=== PATIENT | male | born 2000 | race Two or more races ===

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

== ENCOUNTER 2019-02-12 22:45 | Emergency (ER) | payer OTHER ==
[2019-02-12 22:51] VITALS: TEMP 98; BMI 27.4
--- NOTE | 2019-02-12 23:17 | PDOC ---
Attending Attestation - Resident Resident Name: Yousuf Penn - ED Attending Attestation I have performed the following: I have examined & evaluated the patient, The case was reviewed & discussed with the resident, I agree w/resident's findings & plan - HPI HPI: 02/13/19 00:58 Pt comes with CP that began with breathing a few hrs prior to arrival. Pt did no heavy lifting; he doesn't work or go to school at the moment. He uses no drugs/alcohol. He is a smoker Afebrile Hx of asthma as a child. No cough; no productive sputum. - Physicial Exam PE: 02/13/19 00:59 Agree with resident exam Pt has normal non wheezing lung exam; no rhonchi/rales - Medical Decision Making 02/13/19 01:00 Labs normal; EKG and CXR normal; vital signs normal; exam normal Home with NSAIDS. 02/13/19 01:01 Pt appears great.
[2019-02-12] MEDS ORDERED: LACTATED RINGERS SOLUTION 1000 ML INFUS.BAG IV ONE (23:59)
[2019-02-13 00:15] LABS: BASO % 0.2 % (0-2.0); EOS % 0.4 % (0-4.5); HEMATOCRIT 47.4 % (35.4-49); LYMPH % 24.8 % (8-40); MCH 30.8 pg (25.7-33.7); MCHC 33.8 g/dl (32.0-35.9); MEAN CELL VOLUME 91.2 fl (80-96); MEAN PLT VOLUME 9.5 fl (7.5-11.1); NEUT % 68.6 % (42.8-82.8); PLATELET COUNT 224 K/MM3 (134-434); RBC 5.19 M/mm3 (4.00-5.60); RDW 13.3 % (11.9-15.9)
--- NOTE | 2019-02-13 00:18 | PDOC ---
History of Present Illness - General Chief Complaint: Chest Pain Stated Complaint: CHEST PAIN Time Seen by Provider: 02/12/19 23:11 History Source: Patient, Parent(s) (Mother present at bedside.), Significant Other (Girlfriend present at bedside.) Exam Limitations: No Limitations - History of Present Illness Initial Comments: HPI: 18 y/o male presenting to [facility] ER complaining of substernal chest pain with radiation to left arm for the past four hours. Sensation is made worse with palpation and movement of left arm. Reports the pain started while he was sitting on the couch talking to his girlfriend. He then passed out for approx. 5-10 minutes. Subsequently threw up after returning to baseline. Denies tongue trauma, or loss of bowel or bladder continents. Girlfriend denies observing seizure like activity. Pt took ASA prior to presentation. Denies h/o of similar sensation. Denies change in symptoms with position change or exertion. Denies recent illness. Denies trauma. Family Hx: - Cousin of a heart attack at age 19 - Mother had a stroke in her early 50s Social Hx: - Lifts weights, but has not been to the gym in a week. Denies lifting anything heavy. - Denies using OTC vitamins or supplements. Medical Hx: - Asthma, has not used inhaler in several years Review of Systems: In addition to that documented in the HPI above, the additional ROS was obtained : Constitutional- Denies fevers or chills Head- Denies vision changes ENMT- Endorses one month of a sore throat CV- Per HPI Resp- Endorses SOB - described as trouble bringing air into his body GI- Endorses vomiting. Denies diarrhea - Denies painful urination MSK- Denies recent trauma Skin- Denies new rashes Neuro- Denies new numbness or tingling or weakness Endocrine- Denies polyuria Heme- Denies bleeding or bruising Physical Examination: Constitutional- Well-developed, well-nourished adult male in no acute distress or obvious discomfort. Found semi-fowlers on hospital bed. Answered all questions appropriately and completely. Head- Normocephalic. No obvious external signs of trauma. Neck- Supple, trachea is midline. Cardiovascular / Chest- Regular rate and regular rhythm. No murmur, rubs, clicks , or gallops. Peripheral pulses- radial pulses full. No pretibial edema. No change in pain with transitioning from laying to sitting position. Diffuse pain to sternal area of chest, made worse with direct palpation and lift off test of left arm. Respiratory- Breathing unlabored but mildly tachypneic. Occasional dry sounding cough. Speaking in complete sentences without pausing. Equal chest rise and fall. Clear to auscultation bilaterally. No stridor, no wheezing, no rhonchi. Gastrointestinal- abdomen is soft, non-tender, non-distended. Neuro- Alert and oriented x4. Moving all four extremities spontaneously. Skin- Warm, dry, and intact. - No R or L CVA tenderness. Psych- Affect- concerned. Mood- normal. Speech was non-labored, non-pressured. MDM: *Reviewed vital signs, nursing notes, and prior visit documentation (if available). 18 y/o male presenting with reproducible chest pain and left arm pain. Vague possible syncopal episode. No reported seizure like activity. Afebrile. Vitals unremarkable for hypotension or tachycardia. Physical exam as described above. EKG unremarkable for ischemic changes. Troponin not elevated. Will not repeat as the symptoms started >3 hours prior to measurement. D-Dimer not elevated. CXR unremarkable for acute cardiopulmonary findings per ED wet read. Radiology report pending. Ordered IVFB and Motrin for symptom relief. Suspect likely MSK given reproducible nature. Pt reassessed. Reports his symptoms have resolved during course of ED encounter. Discussed importance of quitting smoking. Provided resources. Discussed labs and xrays results with pt and family. Answered all questions. Provided return precautions. Pt and family expressed verbal understanding and agreement with plan to discharge home with outpatient follow up. Provided copies of todays results. Yousuf Penn M.D., PGY2 Emergency Medicine Resident Past History - Past Medical History Allergies/Adverse Reactions: Allergies Allergy/AdvReac Type Severity Reaction Status Date / Time Penicillins Allergy Verified 02/12/19 22:51 Home Medications: Ambulatory Orders No Home Medications 0 dose .ROUTE UTDICT 01/25/13 Asthma: Yes COPD: No - Immunization History Immunization Up to Date: Yes - Psycho Social/Smoking Cessation Hx Smoking Status: No Smoking History: Never smoked Have you smoked in the past 12 months: No Number of Cigarettes Smoked Daily: 0 Hx Alcohol Use: No Drug/Substance Use Hx: No Substance Use Type: None *Physical Exam - Vital Signs Last Vital Signs Temp Pulse Resp BP Pulse Ox 98 F 93 H 18 124/70 99 02/12/19 22:48 02/12/19 22:48 02/12/19 22:48 02/12/19 22:48 02/12/19 22:48 ED Treatment Course - LABORATORY CBC & Chemistry Diagram: 02/12/19 23:55 02/12/19 23:55 - RADIOLOGY Radiology Studies Ordered: Category Date Time Status CHEST PA & LAT [RAD] Stat Radiology 02/12/19 23:33 Ordered Discharge - Discharge Information Problems reviewed: Yes Clinical Impression/Diagnosis: Atypical chest pain, Left arm pain Condition: Improved Disposition: HOME - Admission No - Follow up/Referral Referrals: Christine Sanchez [Primary Care Provider] - - Patient Discharge Instructions Patient Printed Discharge Instructions: DI for Atypical Chest Pain Additional Instructions: You were seen today for chest and left arm pain. Your chest xray, EKG, and blood work were normal. Your symptoms are not likely to be from your heart or your lungs. You can take over the counter Tylenol or Advil as needed for pain. Take as directed on the package insert. Do not exceed the recommended dosage. Follow up with your primary care doctor in the next 3-4 days. You will need to call to make an appointment. The number is included in this packet. A copy of todays results are attached to this packet. Take it to the appointment so your doctor can review them. YOU NEED TO QUIT SMOKING! Shortness of breath will be what you feel every single hour of every single day if you continue to smoke. It is a difficult process, but it is not one you have to go through alone. Call the [facility] Smokers' Quitline at 1-940-TE-QUITS ( ) or visit www.[employer]. The Quitline also provides free starter kits of nicotine replacement therapy (NRT) to eligible [facility]. Services are free and confidential. Go to the nearest emergency department if your condition worsens or you feel like you need additional emergency evaluation. Print Language: KOSOVAN - Post Discharge Activity Work/Back to School Note: Back to Work
[2019-02-13 00:44] LABS: ALBUMIN 4.5 g/dl (3.4-5.0); BILIRUBIN,TOTAL 0.4 mg/dL (0.2-1); BLOOD UREA NITROGEN 9.2 mg/dL (7-18); CALCIUM 9.3 mg/dL (8.5-10.1); POTASSIUM 3.7 mmol/L (3.5-5.1)
[2019-02-13] MEDS ORDERED: IBUPROFEN 400 MG TABLET (FP) PO ONE ×2 (00:56→01:12)
[2019-02-13 02:09] VITALS: BP 121/72; PULSE 87
--- NOTE | 2019-02-13 11:28 | EKG ---
Test Reason : Blood Pressure : / mmHG Vent. Rate : 096 BPM Atrial Rate : 096 BPM P-R Int : 154 ms QRS Dur : 086 ms QT Int : 330 ms P-R-T Axes : 020 068 040 degrees QTc Int : 416 ms NORMAL SINUS RHYTHM NORMAL ECG NO PREVIOUS ECGS AVAILABLE Confirmed by GLENROY CAGE MD ([id number]) on 02/13/2019 11:28:33 AM Referred By: Confirmed By:GLENROY CAGE MD
== END 2019-02-13 01:50 | disposition home or self-care (01) ==
LOC: JER 22:45
PROC: 3E0337Z Introduction of Electrolytic and Water Balance Substance into Peripheral Vein, Percutaneous Approach (ICD-10-PCS; principal; 2019-02-12)
DX: R07.89 Other chest pain (principal); M79.602 Pain in left arm; Z88.0 Allergy status to penicillin
CPT/HCPCS: 36415; 71046-TC-FY; 80053; 84484; 85025; 85379; 93005; 93010; 99283-25

== ENCOUNTER 2019-04-20 18:40 | Emergency (ER) | payer OTHER ==
--- NOTE | 2019-04-20 19:59 | PDOC ---
Rapid Medical Evaluation Chief Complaint: Pain Time Seen by Provider: 04/20/19 19:56 Medical Evaluation: Allergies Allergy/AdvReac Type Severity Reaction Status Date / Time Penicillins Allergy Verified 02/12/19 22:51 04/20/19 19:57 Pt c/o: rlq pain x 3 weeks, diarrhea and fever x 1 week Pt on brief exam: vss, + mc burneys Pt ordered for: labs, urine, Pt to proceed to the ED 04/20/19 20:00 Discharge Disposition - Diagnosis Abdominal pain - Referrals - Patient Instructions - Post Discharge Activity
[2019-04-20 20:00] VITALS: BP 124/71; PULSE 80; TEMP 98.7; BMI 26.6
== END 2019-04-20 23:24 | disposition left against medical advice (07) ==
LOC: JER 18:40
DX: Z53.21 Procedure and treatment not carried out due to patient leaving prior to being seen by health care provider (principal)
CPT/HCPCS: 99281-25